=== PATIENT | female | born 1990 | race Caucasian/White ===

== ENCOUNTER 2020-09-16 22:09 | Emergency (ER) | payer OTHER ==
[~2020-09-16] VITALS: Ht 160 cm; Wt 97.0 kg
[2020-09-16] MEDS ORDERED: KETOROLAC 60MG/2ML VIAL IM ONE (23:00)
[2020-09-16] MEDS ORDERED: HYDROCODONE/ACETAMINOPHEN 10/325MG TABLET PO ONE (23:00)
[2020-09-16 23:04] VITALS: BP 135/77
[2020-09-17] MEDS ORDERED: IBUP-2029 MT (00:54)
== END 2020-09-17 01:30 | disposition home or self-care (01) ==
LOC: ER 22:09
DX: R10.11 Right upper quadrant pain (principal); R11.0 Nausea; R03.0 Elevated blood-pressure reading, without diagnosis of hypertension
CPT/HCPCS: 81025; 96372; 99283; J1885